=== PATIENT | female | born 1985 | race Caucasian/White ===

== ENCOUNTER 2016-06-09 20:33 | Emergency (ER) | payer SELFPAY ==
[~2016-06-09] VITALS: Ht 154.9 cm; Wt 59.0 kg
[2016-06-09 21:45] LABS: BILIRUBIN,URINE Negative (Negative); COLOR,URINE Yellow; GLUCOSE, URINE (UA) Negative (Negative); LEUKOCYTE ESTERASE ,URINE Negative (Negative); PH,URINE 6.5 (5.0 - 8.0)
[2016-06-09 21:46] LABS: HCG,QUALITATIVE URINE Negative (Negative)
[2016-06-09] MEDS ORDERED: SODIUM CHLORIDE FLUSH 3 ML SYR IV PRN (21:50)
[2016-06-09] MEDS ORDERED: HYDROmorphone 1 MG/ML (DILAUDID) SYRINGE IV ONE (21:50)
[2016-06-09] MEDS ORDERED: SODIUM CHLORIDE FLUSH 10 ML SYR IV PRN (21:50)
[2016-06-09] MEDS ORDERED: ONDANSETRON 2 MG/ML (Z0FRAN) 2 ML VIAL IV ONE (21:50)
[2016-06-09 22:12] LABS: CLARITY,URINE Slightly Cloudy
[2016-06-09 22:22] LABS: RBC,URINE 20-50 /HPF; URINE CENTRIFUGED VOLUME 12 mL
[2016-06-09 23:18] LABS: BASOPHILS % (AUTO) 0 % (0-2); EOSINOPHILS # (AUTO) 0.2 10^3uL; EOSINOPHILS % (AUTO) 2 % (0-4); LYMPHOCYTES # (AUTO) 3.1 X10^3; MEAN CORPUSCULAR HEMOGLOBIN 29.7 PG (26.0-34.0); MEAN CORPUSCULAR HGB CONC 34.1 g/dL (31.0-37.0); MEAN CORPUSCULAR VOLUME 87 FL (80-100); MEAN PLATELET VOLUME 10.6 FL (6.0-9.5); MONOCYTES # (AUTO) 0.6 X10^3; MONOCYTES % (AUTO) 8 % (3-11); NEUTROPHILS # (AUTO) 4.1 X10^3; NEUTROPHILS % (AUTO) 52 % (51-67); PLATELET COUNT 281 10^3uL (150-450); WHITE BLOOD COUNT 8.06 10^3uL (4.0-11.0)
[2016-06-09] MEDS ORDERED: ONDANSETRON 2 MG/ML (Z0FRAN) 2 ML VIAL ONE (23:18)
[2016-06-09] MEDS ORDERED: HYDROmorphone 1 MG/ML (DILAUDID) SYRINGE ONE (23:18)
[2016-06-09 23:27] LABS: ANION GAP 13.2 MEQ/L (3-15); CALCULATED IONIZED CALCIUM 3.9 mg/dL (3.8-4.6); TOTAL PROTEIN 7.2 g/dL (6.4-8.5)
[2016-06-10] MEDS ORDERED: ED- HYDROcodone/ACETAMINOPHEN 5MG/325MG (NORCO) 6 TABLETS/BTL PO ONE (00:15)
[2016-06-10 01:35] VITALS: BP 111/76
== END 2016-06-10 01:00 | disposition home or self-care (01) ==
LOC: ED 20:34
DX: N83.201 Unspecified ovarian cyst, right side (principal)
CPT/HCPCS: 36415; 76856; 80053; 81003; 81015; 81025; 85025; 96361; 96374; 96375; 99283; J1170; J2405; J7030

== ENCOUNTER 2016-09-24 22:04 | Emergency (ER) | payer SELFPAY ==
[~2016-09-24] VITALS: Ht 154.9 cm; Wt 59.1 kg
[~2016-09-24 22:04] MED LIST: HYDR-3702 PO
[2016-09-24] MEDS ORDERED: SERT25TA PO (23:36)
[2016-09-25 01:15] VITALS: BP 106/65
--- NOTE | 2016-09-25 07:04 | Diagnostic Imaging Report ---
PROCEDURE: CT head without contrast. TECHNIQUE: Multiple contiguous axial images were obtained through the brain without the use of intravenous contrast. INDICATION: Fall hit forehead. Findings: No evidence of intracranial hemorrhage. Ventricles and cortical gyral pattern are normal. There is no mass effect. No extra-axial fluid collection. Mastoid air cells and paranasal sinuses are clear were visualized. No evidence of calvarial fracture. IMPRESSION: Negative CT head without contrast. These findings are concordant with the preliminary report. Dictated by: Dictated on workstation # [id number]
== END 2016-09-25 01:03 | disposition home or self-care (01) ==
LOC: ED 22:06
DX: S06.0X0A Concussion without loss of consciousness, initial encounter (principal); W22.09XA Striking against other stationary object, initial encounter; Y92.009 Unspecified place in unspecified non-institutional (private) residence as the place of occurrence of the external cause
CPT/HCPCS: 70450; 99282